=== PATIENT | male | born 1955 | race Caucasian/White ===

== ENCOUNTER 2024-03-13 00:47 | Emergency (ER) | payer OTHER, MEDICAID ==
[~2024-03-13] VITALS: Ht 177.8 cm; Wt 80.0 kg
[2024-03-13 01:01] VITALS: O2SAT 100
[2024-03-13 02:43] LABS: HEMATOCRIT. 30.9 % (42.0-52.0); HEMOGLOBIN. 9.3 g/dL (14.0-18.0); MEAN CORPUSCULAR HEMOGLOBIN 19.6 pg (28.0-32.0); MEAN CORPUSCULAR HGB CONC 30.2 g/dL (31.0-37.0); RED BLOOD CELL COUNT 4.75 mill/uL (4.7-6.1); RED CELL DISTRIBUTION WIDTH 22.4 % (11.6-14.6); WHITE BLOOD COUNT 7.6 x1000/uL (4.5-11.0)
[2024-03-13 02:44] LABS: CALCIUM 8.8 mg/dL (8.7-10.4); POTASSIUM 3.9 mEq/L (3.5-5.1)
[2024-03-13 02:49] LABS: CREATININE 2.3 mg/dL (0.6-1.3)
[2024-03-13 02:59] LABS: DIFFERENTIAL COMMENT 1
[2024-03-13 03:46] LABS: ALANINE AMINOTRANSFERASE 11 IU/L (10-49); ALBUMIN 3.9 g/dL (3.2-4.8); ASPARTATE AMINOTRANSFERASE 31 IU/L (<34); BILIRUBIN DIRECT 0.2 mg/dL (<=3.0); BILIRUBIN TOTAL 0.5 mg/dL (0.1-1.0)
[2024-03-13 03:47] LABS: PROTEIN TOTAL 6.7 g/dL (6.0-8.3)
[2024-03-13 04:09] LABS: INR 1.1; PARTIAL THROMBOPLASTIN TIME 35.8 sec (23.4-31.0); PROTHROMBIN TIME 12.5 sec (9.6-11.0)
[2024-03-13] MEDS ORDERED: IPRATROPIUM/ALBUTEROL 0.5-3(2.5)MG/3ML NEB HHN PRN (08:00)
[2024-03-13] MEDS ORDERED: CLONIDINE 0.1MG TABLET PO PRN (08:00)
[2024-03-13] MEDS ORDERED: ACETAMINOPHEN 325MG TABLET PO PRN ×2 (08:00)
[2024-03-13] MEDS ORDERED: LORAZEPAM 0.5MG TABLET PO PRN (08:00)
[2024-03-13] MEDS ORDERED: GUAIFENESIN 200MG/10ML SUGAR FREE UDC PO PRN (08:00)
[2024-03-13 08:07] LABS: PLATELET 161 x1000/uL (130-400)
[2024-03-13 08:13] LABS: HYPOCHROMASIA 1+; MICROCYTOSIS 2+; PLATELET ESTIMATE NORMAL
[2024-03-13 08:14] LABS: ANISOCYTOSIS 1+
[2024-03-13 08:42] LABS: BG BASE EXCESS 6.2 mmol/L (-2.0-3.0); BG CARBOXYHEMOGLOBIN 0.7 % (0.5-1.5); BG FRACTION INSPIRED OXYGEN 21; BG HCO3 ACT 31.5 mmol/L (21.0-28.0); BG METHEMOGLOBIN 0.6 % (0.5-1.5); BG OXYGEN SATURATION 94.9 % (94.0-98.0); BG OXYHEMOGLOBIN 93.7 % (94.0-98.0); BG PCO2 49.5 mmHg (35.0-48.0); BG PH 7.422 (7.350-7.450); BG PO2 76.7 mmHg (83.0-108.0); BG SAMPLE SITE LEFT BRACHIAL; BG TOTAL HEMOGLOBIN 9.6 g/dL (13.5-17.5); BG VENT MODE ROOM AIR
[2024-03-13] MEDS ORDERED: DOCUSATE SODIUM 100MG CAPSULE PO PRN (09:00)
[2024-03-13] MEDS ORDERED: FUROSEMIDE 40MG/4ML VIAL IVP SCH (09:00)
[2024-03-13] MEDS ORDERED: FUROSEMIDE 100MG/10ML VIAL IVP SCH (09:00)
[2024-03-13] MEDS ORDERED: MAGNESIUM/ALUMINUM HYDROXIDE/SIMETHICONE 30ML UDC PO PRN (09:00)
[2024-03-13 09:32] LABS: IRON 27 ug/dL (65-175)
[2024-03-13 09:35] LABS: TOTAL IRON BINDING CAPACITY 342 ug/dl (250-425)
[2024-03-13] MEDS ORDERED: ESMOLOL 2500MG PREMIX 250 ML IV ONE (10:00)
[2024-03-13] MEDS ORDERED: NICARDIPINE 40MG/200ML PREMIX 200 ML IV PRN ×2 (10:00→10:30)
[2024-03-13] MEDS: ESMOLOL 2500MG PREMIX 250 ML IV ONE ×2 (10:17→14:02)
[2024-03-13] MEDS: PANTOPRAZOLE 40MG DR TABLET PO SCH (10:20)
[2024-03-13] MEDS: IOHEXOL-350 100 ML BOTTLE ONE (10:21)
[2024-03-13] MEDS: PANTOPRAZOLE SODIUM 40 MG/VIAL IV SCH (10:57)
[2024-03-13 11:23] LABS: TRIGLYCERIDE 88 mg/dL (0-150)
[2024-03-13 11:24] LABS: ALANINE AMINOTRANSFERASE 11 IU/L (10-49); ASPARTATE AMINOTRANSFERASE 28 IU/L (<34); LACTATE DEHYDROGENASE 243 IU/L (120-246); LDL CHOLESTEROL 64 mg/dL (5-100)
[2024-03-13 11:25] LABS: ALBUMIN 3.7 g/dL (3.2-4.8); BILIRUBIN DIRECT 0.2 mg/dL (<=3.0); BILIRUBIN TOTAL 0.6 mg/dL (0.1-1.0); CHOLESTEROL 127 mg/dL (<200); HDL CHOLESTEROL 46 mg/dL (>55); PHOSPHORUS 3.3 mg/dL (2.5-4.9); PROTEIN TOTAL 6.6 g/dL (6.0-8.3)
[2024-03-13 13:09] VITALS: PULSE 67; RESP 15; TEMP 36.72516; O2SAT 100
[2024-03-13 14:02] VITALS: BP 128/90
== END 2024-03-13 14:54 ==
LOC: ER 00:47 → EDBEDREQSVC 09:30 → ER 14:54
DX: J02.9 Acute pharyngitis, unspecified (principal); N17.9 Acute kidney failure, unspecified; E11.9 Type 2 diabetes mellitus without complications; R04.2 Hemoptysis; D50.9 Iron deficiency anemia, unspecified; I13.0 Hypertensive heart and chronic kidney disease with heart failure and stage 1 through stage 4 chronic kidney disease, or unspecified chronic kidney disease; I08.2 Rheumatic disorders of both aortic and tricuspid valves; I50.9 Heart failure, unspecified; I25.2 Old myocardial infarction; Z79.899 Other long term (current) drug therapy
CPT/HCPCS: 36415; 36600; 71045; 71250; 71275; 76705; 80048; 80061; 80076; 82375; 82378; 82728; 82805; 83036; 83540; 83550; 83605; 83615; 83735; 83880; 84100; 84145; 85025; 86301; 86304; 86850; 86900; 87426; 87804; 93005; 93306; 93970; 96365; 96366; 96367; 99291; 99292; J2470; J3490; Q9967